=== PATIENT | male | born 1980 | race Two or more races ===

== ENCOUNTER 2025-06-27 10:33 | Emergency (ER) | payer SELFPAY ==
[2025-06-27] MEDS: Diphtheria,Pertussis(Acell),Tetanus Vaccine 0.5 ML Syringe IM ONE (11:20)
[2025-06-27] MEDS: Water For Injection, Sterile 10 ML SDV INJECT ONE (11:20)
== END 2025-06-27 12:06 | disposition home or self-care (01) ==
LOC: MW.ED 10:33
DX: S69.92XA Unspecified injury of left wrist, hand and finger(s), initial encounter (principal); Z23 Encounter for immunization; W45.0XXA Nail entering through skin, initial encounter
CPT/HCPCS: 11730; 73140; 90471; 90715; 96372; 99283; A9270; J0690; J2003